=== PATIENT | female | born 1960 | race Asian ===

== ENCOUNTER → 2016-04-07 | Outpatient (CLI) | payer OTHER ==
--- NOTE | 2016-04-07 09:39 | MA ---
Bilateral Screening Digital Mammograms with iCAD Clinical Indications: Routine screening mammograms. Technique: Standard digital cephalocaudal and mediolateral oblique projections were obtained. Additi onal CC views are obtained of each breast. This examination was processed by the [facility] computer-aided detection system. Comparison: 2014, 2013,2012, 2012, 2008 Breast Parenchymal Density: B Findings: There are no masses, no suspicious calcifications, and no secondary signs of malignancy. Impression: Recommendation: Routine screening mammograms in one year. The patients information is entered into a reminder system with a target due date for her next mammog sandra. Negative mammography should not preclude additional workup of a clinically suspicious finding.
== END ==
LOC: BRMIMAGING 08:27
DX: Z12.31 Encounter for screening mammogram for malignant neoplasm of breast (principal)
CPT/HCPCS: G0202

== ENCOUNTER → 2017-05-06 | Outpatient (CLI) | payer OTHER | LOC: BRMIMAGING 13:30 | PROVIDERS: ATTEND Internal Medicine | DX: Z12.31 Encounter for screening mammogram for malignant neoplasm of breast (principal); Z80.3 Family history of malignant neoplasm of breast ==

== ENCOUNTER → 2018-06-19 | Outpatient (CLI) | payer OTHER | LOC: BRMIMAGING 14:33 | PROVIDERS: ATTEND Family Medicine | DX: Z12.31 Encounter for screening mammogram for malignant neoplasm of breast (principal); Z80.3 Family history of malignant neoplasm of breast ==